=== PATIENT | female | born 1950 | race African-American/Black ===

== ENCOUNTER 2022-07-10 06:40 | Inpatient (IN) | payer MEDICARE, MEDICAID ==
[2022-07-07 12:46] LABS: Basophils # (auto) 0 10 ^3/uL (0-0.2); Basophils % (auto) 0.2 % (0.0-2.0); Eosinophils # (auto) 0.1 10 ^3/uL (0-0.8); Eosinophils % (auto) 1.2 % (0.0-7.0); Hemoglobin 14.6 g/dL (12.2-16.2); Lymphocytes % (auto) 50.6 % (10.0-50.0); Mean Corpuscular Hemoglobin 29.1 pg (28.0-32.0); Mean Corpuscular Hgb Conc. 31.7 g/dL (32.0-36.0); Monocytes # (auto) 0.7 10 ^3/uL (0-1.3); Monocytes % (auto) 9.2 % (0.0-12.0); Neutrophils # (auto) 3.1 10 ^3/uL (1.6-8.6); Neutrophils % (auto) 38.8 % (37.0-80.0); Nucleated Red Blood Cells % 0.1 %; Red Cell Distribution Width 14.8 % (11.8-14.3); White Blood Cell 7.9 10^3/uL (4.4-10.8)
[2022-07-07 13:08] LABS: INR 1.1 (0.9-1.15); Partial Thromboplastin Time 36.2 sec (24.6-33.4)
[2022-07-07 13:32] LABS: Albumin 4.2 g/dL (3.4-5.0); Calcium 9.4 mg/dL (8.5-10.1); Potassium 3.7 mmol/L (3.5-5.1)
[2022-07-07 13:35] LABS: BUN/Creatinine Ratio 16.7; Bilirubin, Total 1.3 mg/dL (0.2-1.0); Total Protein 8.8 g/dL (6.4-8.2)
[2022-07-10] VITALS (8 sets, daily range): BP systolic 93–121; BP diastolic 57–79
[~2022-07-10] VITALS: Ht 157.5 cm; Wt 52.2 kg
[~2022-07-10 06:40] MED LIST: OXYC325T14 PO; ZOLP10TA PO; [UNRECOGNIZED DRUG - CODE] XX
[2022-07-10] MEDS ORDERED: ceFAZolin 1GM/50ML 100 ML IV ONE (07:29)
[2022-07-10] MEDS ORDERED: ACETAMINOPHEN IV 100 ML IV ONE (07:29)
[2022-07-10] MEDS ORDERED: PREGABALIN CAPSULE 75 MG CAP PO ONE (07:30)
[2022-07-10] MEDS ORDERED: ACETAMINOPHEN IV 1000 MG/100ML (10MG/ML) IV ONE (07:30)
[2022-07-10] MEDS ORDERED: CELECOXIB 100 MG CAP PO ONE (07:30)
[2022-07-10] MEDS ORDERED: MORPHINE SULF PF 5 MG/10 ML VIAL ONE (09:31)
[2022-07-10] MEDS ORDERED: fentaNYL CITRATE 100 MCG/2 ML VL ONE (09:31)
[2022-07-10] MEDS ORDERED: MIDAZOLAM HCL 2MG/2ML 2ml VIAL (1mg/ml) ONE (09:31)
[2022-07-10] MEDS ORDERED: ONDANSETRON HCL 4 MG/2 ML VIAL ONE (09:32)
[2022-07-10] MEDS ORDERED: PROPOFOL 10 MG/ML 20 ML IV ONE (09:32)
[2022-07-10] MEDS ORDERED: ePHEDrine SULFATE 50 MG/ML AMP ONE (09:32)
[2022-07-10] MEDS ORDERED: GLYCOPYRROLATE 0.2 MG/ML 1ML VIAL ONE (09:32)
[2022-07-10] MEDS ORDERED: BUPIVACAINE W/ EPINEPH 0.25% INJ 50ML MDV ONE (10:47)
[2022-07-10] MEDS ORDERED: TRANEXAMIC ACID 20 ML ONE (10:49)
[2022-07-10] MEDS ORDERED: KETOROLAC TROMETH 30 MG/ML 1ML VIAL ONE (10:50)
[2022-07-10] MEDS ORDERED: VANCOMYCIN HCL 1000 MG VL ONE ×2 (10:51→13:22)
[2022-07-10] MEDS ORDERED: FAMOTIDINE (10MG/ML) 2ML VL IV ONE (10:57)
[2022-07-10] MEDS ORDERED: VANCOMYCIN HCL 1000 MG VL IR ONE (12:30)
[2022-07-10] MEDS ORDERED: DexAMETHasone SOD PHOS 10MG/1ML VIAL INJ IV ONE (13:03)
[2022-07-10] MEDS ORDERED: ONDANSETRON HCL 4 MG/2 ML VIAL IV PRN ×3 (13:30→14:00)
[2022-07-10] MEDS ORDERED: NITROGLYCERIN 0.4 MG SL TAB SL PRN (13:30)
[2022-07-10] MEDS ORDERED: MORPHINE SULFATE INJ 2 MG/ml SYRG IV PRN (13:30)
[2022-07-10] MEDS ORDERED: BISACODYL 5 MG EC TAB PO PRN (13:30)
[2022-07-10] MEDS ORDERED: HYDROmorphone HCL 2 MG/ML VL/or syr IV PRN (13:30)
[2022-07-10] MEDS ORDERED: OXYCODONE W/ ACETAMINOPHEN 5/325MG TABLET PO PRN (13:30)
[2022-07-10] MEDS: LACTATED RINGER'S 1,000 ML IV SCH ×2 (13:30→23:30)
[2022-07-10] MEDS: ceFAZolin 1GM/50ML 50 ML IV SCH ×2 (13:30→20:00)
[2022-07-10] MEDS: SODIUM CHLOR 0.9% PF (SALINE LOCK) 10ML VIAL/SYR IV SCH ×2 (14:00→21:40)
[2022-07-10] MEDS ORDERED: NALBUPHINE HCL 10 MG/1ml INJECTION SUBCUT PRN (14:00)
[2022-07-10] MEDS ORDERED: NALOXONE HCL 0.4 MG/ML VIAL IV PRN (14:00)
[2022-07-10] MEDS ORDERED: DexAMETHasone SOD PHOS 10MG/1ML VIAL INJ IV PRN (14:00)
[2022-07-10] MEDS ORDERED: diphenhdrAMINE HCL 50 MG/1 ML VL IV PRN (14:00)
[2022-07-10] MEDS ORDERED: FAMOTIDINE (10MG/ML) 2ML VL IV PRN (14:00)
[2022-07-10] MEDS: DOCUSATE SOD 100 MG CAP PO SCH (21:40)
[2022-07-10] MEDS: oxyCODONE ER 10 MG TAB PO SCH (21:40)
[2022-07-10] MEDS: ZOLPIDEM TARTRATE 5 MG TAB PO SCH (23:09)
[2022-07-11] VITALS (12 sets, daily range): BP systolic 73–125; BP diastolic 45–76
[2022-07-11] MEDS: ceFAZolin 1GM/50ML 50 ML IV SCH (01:30)
[2022-07-11] MEDS: SODIUM CHLOR 0.9% PF (SALINE LOCK) 10ML VIAL/SYR IV SCH ×3 (04:47→21:13)
[2022-07-11] MEDS: OXYCODONE W/ ACETAMINOPHEN 5/325MG TABLET PO PRN ×4 (04:48→19:11)
[2022-07-11 05:16] LABS: Hematocrit 31.9 % (36.0-46.0); Hemoglobin 10.5 g/dL (12.2-16.2)
[2022-07-11 05:33] LABS: Albumin 3.2 g/dL (3.4-5.0); BUN/Creatinine Ratio 19.4; Calcium 8.4 mg/dL (8.5-10.1); Potassium 4.4 mmol/L (3.5-5.1)
[2022-07-11 05:42] LABS: Total Protein 6.4 g/dL (6.4-8.2)
[2022-07-11] MEDS: LACTATED RINGER'S 1,000 ML IV SCH ×2 (09:30→11:12)
[2022-07-11] MEDS: ENOXAPARIN SOD 40 MG/0.4 ML SYRINGE SC SCH (10:00)
[2022-07-11] MEDS: oxyCODONE ER 10 MG TAB PO SCH ×2 (10:00→22:30)
[2022-07-11] MEDS: DOCUSATE SOD 100 MG CAP PO SCH ×2 (11:16→21:13)
[2022-07-11] MEDS ORDERED: HYDROmorphone HCL 2 MG/ML VL/or syr IV PRN (11:30)
[2022-07-11 14:25] LABS: Urine Bacteria NONE SEEN /hpf (None Seen); Urine Blood Negative /uL (Negative); Urine Specific Gravity 1.016 (1.001-1.035); Urine WBC 4 /hpf (0 - 5)
[2022-07-11] MEDS: FAMOTIDINE 20 MG TAB PO SCH (21:12)
[2022-07-11] MEDS: ZOLPIDEM TARTRATE 5 MG TAB PO SCH (21:13)
[2022-07-12] VITALS (7 sets, daily range): BP systolic 111–126; BP diastolic 53–68
[2022-07-12] MEDS: OXYCODONE W/ ACETAMINOPHEN 5/325MG TABLET PO PRN (03:15)
[2022-07-12 04:48] LABS: Basophils # (auto) 0 10 ^3/uL (0-0.2); Basophils % (auto) 0.2 % (0.0-2.0); Eosinophils # (auto) 0 10 ^3/uL (0-0.8); Hematocrit 27.1 % (36.0-46.0); Lymphocytes # (auto) 4.3 10 ^3/uL (0.4-5.4); Lymphocytes % (auto) 36.9 % (10.0-50.0); Mean Corpuscular Hemoglobin 30.2 pg (28.0-32.0); Mean Corpuscular Hgb Conc. 33.2 g/dL (32.0-36.0); Mean Corpuscular Volume 91.1 fL (80.0-100.0); Monocytes # (auto) 1.2 10 ^3/uL (0-1.3); Monocytes % (auto) 10.3 % (0.0-12.0); Neutrophils # (auto) 6.1 10 ^3/uL (1.6-8.6); Neutrophils % (auto) 52.6 % (37.0-80.0); Nucleated Red Blood Cells % 0.1 %; Red Blood Cells 2.97 10^6/uL (4.0-5.20); Red Cell Distribution Width 14.5 % (11.8-14.3); White Blood Cell 11.6 10^3/uL (4.4-10.8)
[2022-07-12 05:07] LABS: BUN/Creatinine Ratio 24.4; Potassium 4.1 mmol/L (3.5-5.1)
[2022-07-12] MEDS: LACTATED RINGER'S 1,000 ML IV SCH ×2 (05:30→15:30)
[2022-07-12] MEDS: SODIUM CHLOR 0.9% PF (SALINE LOCK) 10ML VIAL/SYR IV SCH ×2 (05:38→14:00)
[2022-07-12] MEDS: FAMOTIDINE 20 MG TAB PO SCH (09:35)
[2022-07-12] MEDS: DOCUSATE SOD 100 MG CAP PO SCH (09:35)
[2022-07-12] MEDS: oxyCODONE ER 10 MG TAB PO SCH (09:35)
[2022-07-12] MEDS: ENOXAPARIN SOD 40 MG/0.4 ML SYRINGE SC SCH (10:00)
== END 2022-07-12 16:30 | disposition home health service (06) | DRG 324 ==
LOC: SUR 06:40 → TELE 13:23 → DOU IN ICU 15:31
PROVIDERS: ADMIT Orthopaedic Surgery Adult Reconstructive Orthopaedic Surgery; ATTEND Internal Medicine
PROC: BQ111ZZ Fluoroscopy of Left Hip using Low Osmolar Contrast (ICD-10-PCS; 2022-07-10)
PROC: 0SRB06Z Replacement of Left Hip Joint with Oxidized Zirconium on Polyethylene Synthetic Substitute, Open Approach (ICD-10-PCS; principal; 2022-07-10 11:01)
DX: M16.12 Unilateral primary osteoarthritis, left hip (principal); I95.9 Hypotension, unspecified; I10 Essential (primary) hypertension; M21.70 Unequal limb length (acquired), unspecified site; Z20.822 Contact with and (suspected) exposure to COVID-19; Z91.81 History of falling
CPT/HCPCS: 36415; 72170; 73502; 76000; 80048; 80053; 81001; 85014; 85018; 85025; 85610; 85730; 86850; 86900; 86901; 87081; 97110; 97116; 97163; 97530; G0378; J0131; J0690; J1100; J1885; J2250; J2405; J2704; J3490